=== PATIENT | female | born 1955 | race Asian ===

== ENCOUNTER 2020-12-24 14:41 | Emergency (ER) | payer MEDICARE, OTHER ==
[~2020-12-24] VITALS: Ht 152.4 cm; Wt 49.9 kg
[2020-12-24 16:02] VITALS: BP 129/88
[2020-12-24] MEDS ORDERED: TETANUS-DIPTH-ACEL PERTUSSIS 0.5ML SYR Tdap IM ONE (17:45)
== END 2020-12-24 18:34 | disposition home or self-care (01) ==
LOC: ER 14:49
DX: S51.852A Open bite of left forearm, initial encounter (principal); W54.0XXA Bitten by dog, initial encounter; Y93.89 Activity, other specified; Y92.89 Other specified places as the place of occurrence of the external cause; Y99.8 Other external cause status
CPT/HCPCS: 73080; 90471; 90715

== ENCOUNTER 2022-07-12 22:28 | Inpatient (IN) | payer MEDICARE, OTHER ==
[~2022-07-12] VITALS: Ht 157.5 cm; Wt 48.5 kg
[2022-07-12] MEDS ORDERED: SODIUM CHLORIDE 0.9% 1,000 ML IV ONE ×2 (22:45)
[2022-07-12 23:33] LABS: Basophils # (auto) 0 10 ^3/uL (0-0.2); Basophils % (auto) 0.2 % (0.0-2.0); Eosinophils # (auto) 0 10 ^3/uL (0-0.8); Hematocrit 32.3 % (36.0-46.0); Hemoglobin 10.8 g/dL (12.2-16.2); Lymphocytes # (auto) 0.4 10 ^3/uL (0.4-5.4); Lymphocytes % (auto) 5.2 % (10.0-50.0); Mean Corpuscular Hemoglobin 32.9 pg (28.0-32.0); Mean Corpuscular Hgb Conc. 33.6 g/dL (32.0-36.0); Mean Corpuscular Volume 98.1 fL (80.0-100.0); Monocytes # (auto) 0.2 10 ^3/uL (0-1.3); Monocytes % (auto) 2.5 % (0.0-12.0); Neutrophils # (auto) 7.6 10 ^3/uL (1.6-8.6); Neutrophils % (auto) 92.1 % (37.0-80.0); Red Blood Cells 3.29 10^6/uL (4.0-5.20); White Blood Cell 8.3 10^3/uL (4.4-10.8)
[2022-07-12 23:34] LABS: Red Cell Distribution Width 22.4 % (11.8-14.3)
[2022-07-12 23:52] LABS: Albumin 3.8 g/dL (3.4-5.0); Calcium 8.8 mg/dL (8.5-10.1); Potassium 3.9 mmol/L (3.5-5.1)
[2022-07-12 23:54] LABS: BUN/Creatinine Ratio 20.8
[2022-07-12 23:57] LABS: Bilirubin, Total 0.4 mg/dL (0.2-1.0); Total Protein 7.1 g/dL (6.4-8.2)
[2022-07-13] MEDS ORDERED: MORPHINE SULFATE 4 MG/ML SYR/VIAL IV ONE (00:30)
[2022-07-13] MEDS ORDERED: ONDANSETRON HCL 4 MG/2 ML VIAL IV ONE (00:30)
[2022-07-13] MEDS: SODIUM CHLORIDE 0.9% 1,000 ML IV SCH (03:00)
[2022-07-13] MEDS ORDERED: MORPHINE SULFATE INJ 2 MG/ml SYRG IV PRN ×2 (03:00)
[2022-07-13] MEDS ORDERED: NITROGLYCERIN 0.4 MG SL TAB SL PRN (03:00)
[2022-07-13] MEDS ORDERED: HYDROcodone-ACET 5/325MG TAB PO PRN (03:00)
[2022-07-13] MEDS ORDERED: DOCUSATE SOD 100 MG CAP PO PRN (03:00)
[2022-07-13] MEDS ORDERED: MAALOX PLUS or MAALOX 30 ML PO PRN (03:00)
[2022-07-13] MEDS ORDERED: ACETAMINOPHEN 325 MG TAB PO PRN (03:00)
[2022-07-13] MEDS ORDERED: ONDANSETRON HCL 4 MG/2 ML VIAL IV PRN (03:00)
[2022-07-13 05:50] LABS: Basophils # (auto) 0 10 ^3/uL (0-0.2); Basophils % (auto) 0.3 % (0.0-2.0); Eosinophils # (auto) 0 10 ^3/uL (0-0.8); Eosinophils % (auto) 0.4 % (0.0-7.0); Hematocrit 28.6 % (36.0-46.0); Hemoglobin 9.6 g/dL (12.2-16.2); Lymphocytes # (auto) 0.8 10 ^3/uL (0.4-5.4); Lymphocytes % (auto) 14.8 % (10.0-50.0); Mean Corpuscular Hemoglobin 33.3 pg (28.0-32.0); Mean Corpuscular Hgb Conc. 33.7 g/dL (32.0-36.0); Mean Corpuscular Volume 98.8 fL (80.0-100.0); Monocytes # (auto) 0.5 10 ^3/uL (0-1.3); Monocytes % (auto) 8.7 % (0.0-12.0); Neutrophils # (auto) 4.2 10 ^3/uL (1.6-8.6); Neutrophils % (auto) 75.8 % (37.0-80.0); Red Blood Cells 2.89 10^6/uL (4.0-5.20); White Blood Cell 5.6 10^3/uL (4.4-10.8)
[2022-07-13 06:03] LABS: Red Cell Distribution Width 22.5 % (11.8-14.3)
[2022-07-13 06:10] LABS: BUN/Creatinine Ratio 23.5; Calcium 8.1 mg/dL (8.5-10.1); Potassium 3.8 mmol/L (3.5-5.1)
[2022-07-13 08:07] LABS: Urine Bacteria NONE SEEN /hpf (None Seen); Urine Blood Negative /uL (Negative); Urine Mucus FEW (None Seen); Urine WBC 4 /hpf (0 - 5)
[2022-07-13] MEDS ORDERED: AZITHROMYCIN 500MG/ 250ML 250 ML IV ONE (13:15)
[2022-07-13] MEDS ORDERED: cefTRIAXone 1GM/50ML D5W 50 ML IV ONE (13:15)
[2022-07-13 15:31] LABS: INR 1.06 (0.9-1.15); Partial Thromboplastin Time 29.5 sec (24.6-33.4)
[2022-07-13 18:00] VITALS: BP 102/65
[2022-07-13] MEDS ORDERED: DEXA2TAB PO (20:54)
[2022-07-13] MEDS: ALBUTEROL SULF 2.5 MG/0.5ML(0.5%) NEB SOLN NEB SCH (23:35)
[2022-07-13] MEDS: IPRATROPIUM BROM 0.5 MG/2.5ML INH SOL NEB SCH (23:35)
[2022-07-14 05:00] VITALS: BP 92/58
[2022-07-14] MEDS: ALBUTEROL SULF 2.5 MG/0.5ML(0.5%) NEB SOLN NEB SCH ×2 (06:22→11:18)
[2022-07-14] MEDS: IPRATROPIUM BROM 0.5 MG/2.5ML INH SOL NEB SCH ×2 (06:22→11:18)
[2022-07-14] MEDS: SODIUM CHLORIDE 0.9% 1,000 ML IV SCH ×2 (06:59→12:20)
[2022-07-14] MEDS ORDERED: cefTRIAXone 1GM/50ML D5W 50 ML IV SCH (09:00)
[2022-07-14 09:22] VITALS: BP 100/60
[2022-07-14] MEDS ORDERED: ENOXAPARIN SOD 40 MG/0.4 ML SYRINGE SC SCH (10:00)
[2022-07-14] MEDS ORDERED: AZITHROMYCIN 500MG/ 250ML 250 ML IV SCH (10:00)
[2022-07-14 12:26] VITALS: BP 100/60
[2022-07-14 12:30] VITALS: BP 115/68
== END 2022-07-14 13:38 | disposition home or self-care (01) | DRG 597 ==
LOC: ER 22:28 → TELE 07-13 03:00 → WEST WING 07-13 21:10
PROVIDERS: ADMIT Hospitalist; ATTEND Internal Medicine
DX: C50.912 Malignant neoplasm of unspecified site of left female breast (principal); I21.A1 Myocardial infarction type 2; J96.00 Acute respiratory failure, unspecified whether with hypoxia or hypercapnia; C79.51 Secondary malignant neoplasm of bone; J98.11 Atelectasis; C79.31 Secondary malignant neoplasm of brain; J91.0 Malignant pleural effusion; Z20.822 Contact with and (suspected) exposure to COVID-19; G89.4 Chronic pain syndrome; D64.9 Anemia, unspecified; Z92.3 Personal history of irradiation; Z92.21 Personal history of antineoplastic chemotherapy
CPT/HCPCS: 36415; 71045; 74176; 76604; 80048; 80053; 81001; 84484; 85025; 85610; 85730; 87426; 94640; 96361; 96365; 96367; 96375; G0378; J0696; J2405

== ENCOUNTER 2023-06-08 20:31 | Inpatient (IN) | payer MEDICARE, OTHER ==
[~2023-06-08] VITALS: Ht 149.9 cm; Wt 55.8 kg
[~2023-06-08 20:31] MED LIST: DEXA2TAB PO
[2023-06-08 21:33] LABS: Red Blood Cells 3.64 10^6/uL (4.0-5.20); White Blood Cell 7.5 10^3/uL (4.4-10.8)
[2023-06-08 21:35] LABS: Hematocrit 37.5 % (36.0-46.0); Mean Corpuscular Volume 103.1 fL (80.0-100.0); Red Cell Distribution Width 15.9 % (11.8-14.3)
[2023-06-08 21:41] LABS: Basophils % (manual) 0 (0.0-2.0); Blast Cells 0; Eosinophils % (manual) 0 (0-7); Metamyelocytes % 0; Myelocytes % 0; Promyelocytes % 0; Reactive Lymphocytes 0
[2023-06-08 21:54] LABS: Alanine Aminotransferase 16 U/L (7-40); Albumin 3.8 g/dL (3.2-4.8); Alkaline Phosphatase 67 U/L (46-116); Anion Gap 8 (5-15); Aspartate Aminotransferase 28 U/L (13-40); BUN/Creatinine Ratio 29.5 (10.0-20.0); Blood Urea Nitrogen 13 mg/dL (9-23); Calcium 8.3 mg/dL (8.5-10.1); Carbon Dioxide 22 mmol/L (20-30); Chloride 106 mmol/L (98-107); Glucose 127 mg/dL (74-106); Potassium 4.3 mmol/L (3.5-5.1); Sodium 136 mmol/L (136-145)
[2023-06-08 21:55] LABS: Bilirubin, Total 0.6 mg/dL (0.2-1.0); Total Protein 5.7 g/dL (5.7-8.2)
[2023-06-08 22:04] LABS: INR 1.05 (0.9-1.15); Partial Thromboplastin Time 34.5 SEC (24.5-34.5)
[2023-06-08 22:08] LABS: Anisocytosis Slight; Band Neutrophils % (manual) 2; Lymphocytes % (manual) 9 (10.0-50.0); Macrocytosis Slight; Monocytes % (manual) 7 (0-12); Platelet Estimate Adequate
[2023-06-09] VITALS (7 sets, daily range): BP systolic 100–121; BP diastolic 58–66; PULSE 104–118; RESP 18–22; TEMP 98–98.3; O2SAT 95–98
[2023-06-09] MEDS ORDERED: ALBUTEROL MEDNEB 2.5 mg/3ml NEB NEB ONE
[2023-06-09] MEDS ORDERED: SODIUM CHLORIDE 0.9% 1,000 ML IVB ONE
[2023-06-09] MEDS ORDERED: PIPERACILLIN-TAZOB 3.375GM 100 ML IV SCH
[2023-06-09] MEDS ORDERED: VANCOMYCIN PER PHARMACY 0 MG IV SCH
[2023-06-09] MEDS ORDERED: VANCOMYCIN 1GM/250ML 250 ML IV SCH (00:30)
[2023-06-09] MEDS ORDERED: ALBUTEROL MEDNEB 2.5 mg/3ml NEB ONE (00:35)
[2023-06-09] MEDS ORDERED: IOHEXOL 350 MG/ML 100ML IJ ONE (00:48)
[2023-06-09 01:03] LABS: Base Excess -2.5 mmol/L (-2.0-2.0)
[2023-06-09] MEDS: PIPERACILLIN-TAZOB 3.375GM 100 ML IV SCH ×3 (07:56→21:13)
[2023-06-09] MEDS ORDERED: ACETAMINOPHEN 325 MG TAB PO PRN (08:30)
[2023-06-09] MEDS ORDERED: ONDANSETRON HCL 4 MG/2 ML VIAL IV PRN (08:30)
[2023-06-09] MEDS ORDERED: MORPHINE SULFATE INJ 2 MG/ml SYRG IV PRN (10:00)
[2023-06-09] MEDS ORDERED: NITROGLYCERIN 0.4 MG SL TAB SL PRN (10:00)
[2023-06-09] MEDS ORDERED: IPRATROPIUM BROM 0.5 MG/2.5ML INH SOL NEB PRN (11:30)
[2023-06-09] MEDS ORDERED: ALBUTEROL MEDNEB 2.5 mg/3ml NEB NEB PRN (11:30)
[2023-06-09] MEDS: SODIUM CHLOR 0.9% PF (SALINE LOCK) 10ML VIAL/SYR IV SCH ×2 (14:03→21:13)
[2023-06-09] MEDS ORDERED: VANCOMYCIN 500 MG in D5W 5% 100 ML IV SCH (17:00)
[2023-06-09] MEDS: VANCOMYCIN 500 MG in D5W 5% 100 ML IV SCH (19:42)
[2023-06-09 22:42] LABS: Urine Amorphous Crystal FEW /hpf (None Seen); Urine Bacteria FEW /hpf (None Seen); Urine Blood 1+ /uL (Negative); Urine Clarity CLOUDY (Clear); Urine Color Yellow (Yellow); Urine Mucus FEW (None Seen); Urine Protein, UAD 2+ (Negative); Urine Specific Gravity 1.047 (1.001-1.035); Urine Urobilinogen Normal (Negative); Urine WBC 34 /hpf (0 - 5)
[2023-06-10] VITALS (10 sets, daily range): BP systolic 102–123; BP diastolic 58–79; PULSE 103–116; RESP 18–20; TEMP 97.6–97.8; O2SAT 81–98
[2023-06-10] MEDS: HYDROcodone-ACET 5/325MG TAB PO PRN ×3 (00:25→23:17)
[2023-06-10] MEDS: PIPERACILLIN-TAZOB 3.375GM 100 ML IV SCH ×3 (05:08→22:02)
[2023-06-10] MEDS: SODIUM CHLOR 0.9% PF (SALINE LOCK) 10ML VIAL/SYR IV SCH ×3 (05:08→23:16)
[2023-06-10 06:59] LABS: Hematocrit 38.9 % (36.0-46.0)
[2023-06-10 07:03] LABS: Mean Corpuscular Hemoglobin 33.1 pg (28.0-32.0); Mean Corpuscular Hgb Conc. 30.9 g/dL (32.0-36.0); Mean Corpuscular Volume 107.3 fL (80.0-100.0); Red Blood Cells 3.62 10^6/uL (4.0-5.20); Red Cell Distribution Width 16.8 % (11.8-14.3); White Blood Cell 9.1 10^3/uL (4.4-10.8)
[2023-06-10 07:15] LABS: Alanine Aminotransferase 13 U/L (7-40); Albumin 3.6 g/dL (3.2-4.8); Alkaline Phosphatase 62 U/L (46-116); Anion Gap 10 (5-15); Aspartate Aminotransferase 26 U/L (13-40); BUN/Creatinine Ratio 18.4 (10.0-20.0); Bilirubin, Total 0.5 mg/dL (0.2-1.0); Blood Urea Nitrogen 7 mg/dL (9-23); Calcium 7.9 mg/dL (8.7-10.4); Carbon Dioxide 23 mmol/L (20-30); Chloride 103 mmol/L (98-107); Glucose 110 mg/dL (74-106); Potassium 4.1 mmol/L (3.5-5.1); Sodium 136 mmol/L (136-145); Total Protein 5.9 g/dL (5.7-8.2)
[2023-06-10 07:21] LABS: Basophils % (manual) 0 (0.0-2.0); Blast Cells 0; Eosinophils % (manual) 0 (0-7); Metamyelocytes % 0; Myelocytes % 0; Promyelocytes % 0; Reactive Lymphocytes 0
[2023-06-10] MEDS: VANCOMYCIN 500 MG in D5W 5% 100 ML IV SCH ×2 (10:01→20:30)
[2023-06-10 12:25] LABS: Band Neutrophils % (manual) 6; Lymphocytes % (manual) 12 (10.0-50.0); Macrocytosis Moderate; Monocytes % (manual) 10 (0-12); Platelet Estimate Adequate
[2023-06-10 15:15] LABS: Folate (Folic Acid) 12.71 ng/mL (>5.38)
[2023-06-10] MEDS: FUROSEMIDE 40 MG/4 ML VIAL IV SCH (20:11)
[2023-06-11] VITALS (9 sets, daily range): BP systolic 93–141; BP diastolic 63–90; PULSE 107–133; RESP 18–22; TEMP 97.6–98.8; O2SAT 92–96
[2023-06-11 05:14] LABS: COVID19 ANTIGEN SOFIA FIA NEGATIVE (NEGATIVE)
[2023-06-11 05:32] LABS: Basophils # (auto) 0 10 ^3/uL (0-0.2); Basophils % (auto) 0.1 % (0.0-2.0); Eosinophils # (auto) 0 10 ^3/uL (0-0.8); Hematocrit 36.1 % (36.0-46.0); Hemoglobin 11.5 g/dL (12.2-16.2); Lymphocytes # (auto) 0.2 10 ^3/uL (0.4-5.4); Lymphocytes % (auto) 1.6 % (10.0-50.0); Mean Corpuscular Hgb Conc. 31.8 g/dL (32.0-36.0); Mean Corpuscular Volume 100.7 fL (80.0-100.0); Monocytes # (auto) 1.1 10 ^3/uL (0-1.3); Monocytes % (auto) 8.6 % (0.0-12.0); Neutrophils # (auto) 11.1 10 ^3/uL (1.6-8.6); Neutrophils % (auto) 89.7 % (37.0-80.0); Red Blood Cells 3.59 10^6/uL (4.0-5.20); Red Cell Distribution Width 16.2 % (11.8-14.3); White Blood Cell 12.4 10^3/uL (4.4-10.8)
[2023-06-11 05:56] LABS: Alanine Aminotransferase 15 U/L (7-40); Albumin 3.8 g/dL (3.2-4.8); Alkaline Phosphatase 65 U/L (46-116); Anion Gap 9 (5-15); Aspartate Aminotransferase 26 U/L (13-40); BUN/Creatinine Ratio 17.8 (10.0-20.0); Blood Urea Nitrogen 8 mg/dL (9-23); Calcium 8.7 mg/dL (8.5-10.1); Carbon Dioxide 26 mmol/L (20-30); Chloride 101 mmol/L (98-107); Glucose 231 mg/dL (74-106); Sodium 136 mmol/L (136-145)
[2023-06-11 05:57] LABS: Bilirubin, Total 0.4 mg/dL (0.2-1.0); Total Protein 6.2 g/dL (5.7-8.2)
[2023-06-11] MEDS: PIPERACILLIN-TAZOB 3.375GM 100 ML IV SCH (05:58)
[2023-06-11 06:05] LABS: CRP High Sensitivity 16.98 mg/dL (<1.0)
[2023-06-11] MEDS: FUROSEMIDE 40 MG/4 ML VIAL IV SCH ×2 (06:06→18:00)
[2023-06-11] MEDS: SODIUM CHLOR 0.9% PF (SALINE LOCK) 10ML VIAL/SYR IV SCH ×3 (06:07→21:46)
[2023-06-11 06:21] LABS: Magnesium 1.9 mg/dL (1.6-2.6)
[2023-06-11] MEDS: VANCOMYCIN 500 MG in D5W 5% 100 ML IV SCH ×2 (08:31→18:07)
[2023-06-11] MEDS: HYDROcodone-ACET 5/325MG TAB PO PRN (08:39)
[2023-06-11 09:59] LABS: Lactic Acid w/Reflex 2.8 mmol/L (0.4-2.0)
[2023-06-11] MEDS: Glucerna Carbsteady SHAKE Vanilla 8oz PO SCH ×2 (12:15→18:08)
[2023-06-11] MEDS: HYDROcodone-ACET 10/325MG TAB PO PRN (13:08)
[2023-06-11] MEDS ORDERED: MEROPENEM 1GM IVPB 100 ML IV SCH (14:00)
[2023-06-11] MEDS ORDERED: MORPHINE SULFATE INJ 2 MG/ml SYRG IV PRN (15:30)
[2023-06-11] MEDS: MEROPENEM 1GM IVPB 100 ML IV SCH (21:45)
[2023-06-12] VITALS (9 sets, daily range): BP systolic 98–119; BP diastolic 60–71; PULSE 112–126; RESP 16–19; TEMP 97.2–98; O2SAT 94–97
[2023-06-12] MEDS: VANCOMYCIN 500 MG in D5W 5% 100 ML IV SCH ×2 (04:35→13:36)
[2023-06-12] MEDS: FUROSEMIDE 40 MG/4 ML VIAL IV SCH ×2 (06:17→17:48)
[2023-06-12] MEDS: SODIUM CHLOR 0.9% PF (SALINE LOCK) 10ML VIAL/SYR IV SCH ×3 (06:21→21:37)
[2023-06-12] MEDS: Glucerna Carbsteady SHAKE Vanilla 8oz PO SCH ×3 (10:03→17:48)
[2023-06-12] MEDS: MEROPENEM 1GM IVPB 100 ML IV SCH ×2 (10:03→21:29)
[2023-06-12 11:04] LABS: Basophils # (auto) 0.1 10 ^3/uL (0-0.2); Basophils % (auto) 0.5 % (0.0-2.0); Eosinophils # (auto) 0 10 ^3/uL (0-0.8); Hematocrit 34.6 % (36.0-46.0); Lymphocytes % (auto) 9.3 % (10.0-50.0); Mean Corpuscular Hemoglobin 31.6 pg (28.0-32.0); Mean Corpuscular Hgb Conc. 31.7 g/dL (32.0-36.0); Mean Corpuscular Volume 99.8 fL (80.0-100.0); Monocytes # (auto) 0.9 10 ^3/uL (0-1.3); Neutrophils # (auto) 9.1 10 ^3/uL (1.6-8.6); Neutrophils % (auto) 82.2 % (37.0-80.0); Red Blood Cells 3.47 10^6/uL (4.0-5.20); Red Cell Distribution Width 16.9 % (11.8-14.3); White Blood Cell 11.1 10^3/uL (4.4-10.8)
[2023-06-12 11:23] LABS: Alanine Aminotransferase 35 U/L (7-40); Albumin 3.5 g/dL (3.2-4.8); Alkaline Phosphatase 90 U/L (46-116); Anion Gap 6 (5-15); Aspartate Aminotransferase 101 U/L (13-40); Bilirubin, Total 0.3 mg/dL (0.2-1.0); Blood Urea Nitrogen 16 mg/dL (9-23); Calcium 8.7 mg/dL (8.7-10.4); Carbon Dioxide 35 mmol/L (20-30); Chloride 97 mmol/L (98-107); Glucose 154 mg/dL (74-106); Magnesium 1.5 mg/dL (1.6-2.6); Potassium 3.9 mmol/L (3.5-5.1); Sodium 138 mmol/L (136-145); Total Protein 6.2 g/dL (5.7-8.2)
[2023-06-12 11:36] LABS: Lactic Acid w/Reflex 2.1 mmol/L (0.4-2.0)
[2023-06-12] MEDS ORDERED: PANTOPRAZOLE 40 MG/10 ML VIAL INJ IV ONE (16:45)
[2023-06-12] MEDS: DOCUSATE SOD 100 MG CAP PO PRN (16:49)
[2023-06-12] MEDS: HYDROcodone-ACET 10/325MG TAB PO PRN (23:13)
[2023-06-13] MEDS: VANCOMYCIN 750mg/250ml 250 ML IV SCH ×2 (00:47→09:56)
[2023-06-13] MEDS: PANTOPRAZOLE 40 MG/10 ML VIAL INJ IV SCH ×2 (04:57→18:35)
[2023-06-13 05:00] VITALS: BP 114/60; PULSE 114; RESP 16; TEMP 98.4; O2SAT 96
[2023-06-13] MEDS: SODIUM CHLOR 0.9% PF (SALINE LOCK) 10ML VIAL/SYR IV SCH ×3 (05:02→21:34)
[2023-06-13] MEDS: FUROSEMIDE 40 MG/4 ML VIAL IV SCH ×3 (06:00→18:35)
[2023-06-13 08:00] VITALS: BP 100/60; PULSE 113; PULSE 120; PULSE 51; RESP 22; TEMP 98.7; O2SAT 96
[2023-06-13] MEDS: Glucerna Carbsteady SHAKE Vanilla 8oz PO SCH ×3 (09:55→18:36)
[2023-06-13] MEDS: DOCUSATE SOD 100 MG CAP PO PRN (11:23)
[2023-06-13] MEDS: MEROPENEM 1GM IVPB 100 ML IV SCH ×2 (11:24→21:33)
[2023-06-13 12:44] VITALS: BP 131/65; PULSE 116; RESP 20; TEMP 98.6; O2SAT 94
[2023-06-13 17:00] VITALS: BP 111/59; PULSE 113; RESP 20; TEMP 97.4; O2SAT 94
[2023-06-13 20:00] VITALS: PULSE 113; PULSE 117; RESP 20
[2023-06-13] MEDS: HYDROcodone-ACET 10/325MG TAB PO PRN (21:34)
[2023-06-13 22:00] VITALS: BP 110/65; PULSE 112; RESP 17; TEMP 97.6; O2SAT 94
[2023-06-14] VITALS (7 sets, daily range): BP systolic 95–122; BP diastolic 57–76; PULSE 61–118; RESP 12–17; TEMP 97.5–98.1; O2SAT 95–100
[2023-06-14] MEDS: FUROSEMIDE 40 MG/4 ML VIAL IV SCH ×2 (05:50→18:41)
[2023-06-14] MEDS: SODIUM CHLOR 0.9% PF (SALINE LOCK) 10ML VIAL/SYR IV SCH ×3 (05:50→22:21)
[2023-06-14] MEDS: PANTOPRAZOLE 40 MG/10 ML VIAL INJ IV SCH ×2 (05:50→18:39)
[2023-06-14] MEDS: VANCOMYCIN 750mg/250ml 250 ML IV SCH ×2 (08:00→18:41)
[2023-06-14] MEDS: HYDROcodone-ACET 10/325MG TAB PO PRN (10:30)
[2023-06-14] MEDS: MEROPENEM 1GM IVPB 100 ML IV SCH ×2 (10:32→22:21)
[2023-06-14] MEDS: Glucerna Carbsteady SHAKE Vanilla 8oz PO SCH ×3 (10:34→18:43)
[2023-06-15] VITALS (7 sets, daily range): BP systolic 96–108; BP diastolic 57–67; PULSE 98–111; RESP 17–20; TEMP 97.7–98.3; O2SAT 96–100
[2023-06-15] MEDS: VANCOMYCIN 750mg/250ml 250 ML IV SCH ×2 (03:45→18:21)
[2023-06-15] MEDS: HYDROcodone-ACET 10/325MG TAB PO PRN ×2 (05:48→22:02)
[2023-06-15] MEDS: PANTOPRAZOLE 40 MG/10 ML VIAL INJ IV SCH ×2 (06:10→18:20)
[2023-06-15] MEDS: SODIUM CHLOR 0.9% PF (SALINE LOCK) 10ML VIAL/SYR IV SCH ×3 (06:11→21:53)
[2023-06-15] MEDS: FUROSEMIDE 40 MG/4 ML VIAL IV SCH ×2 (06:11→18:20)
[2023-06-15 06:57] LABS: Alanine Aminotransferase 23 U/L (7-40); Albumin 3.5 g/dL (3.2-4.8); Alkaline Phosphatase 87 U/L (46-116); Aspartate Aminotransferase 35 U/L (13-40); BUN/Creatinine Ratio 44.4 (10.0-20.0); Blood Urea Nitrogen 16 mg/dL (9-23); Calcium 8.5 mg/dL (8.7-10.4); Chloride 94 mmol/L (98-107); Glucose 148 mg/dL (74-106); Magnesium 1.7 mg/dL (1.6-2.6); Potassium 3.6 mmol/L (3.5-5.1); Sodium 138 mmol/L (136-145)
[2023-06-15 06:58] LABS: Anion Gap 3.99999 (5-15); Bilirubin, Total 0.4 mg/dL (0.2-1.0); Total Protein 5.5 g/dL (5.7-8.2)
[2023-06-15 07:00] LABS: Carbon Dioxide > 40 mmol/L (20-30)
[2023-06-15 07:07] LABS: Basophils # (auto) 0 10 ^3/uL (0-0.2); Basophils % (auto) 0.1 % (0.0-2.0); Eosinophils # (auto) 0 10 ^3/uL (0-0.8); Eosinophils % (auto) 0.4 % (0.0-7.0); Hematocrit 34.6 % (36.0-46.0); Hemoglobin 11.1 g/dL (12.2-16.2); Lymphocytes # (auto) 0.5 10 ^3/uL (0.4-5.4); Lymphocytes % (auto) 4.7 % (10.0-50.0); Mean Corpuscular Hemoglobin 31.9 pg (28.0-32.0); Mean Corpuscular Hgb Conc. 31.9 g/dL (32.0-36.0); Mean Corpuscular Volume 99.9 fL (80.0-100.0); Monocytes # (auto) 0.7 10 ^3/uL (0-1.3); Monocytes % (auto) 6.5 % (0.0-12.0); Neutrophils # (auto) 8.9 10 ^3/uL (1.6-8.6); Neutrophils % (auto) 88.3 % (37.0-80.0); Red Blood Cells 3.47 10^6/uL (4.0-5.20); Red Cell Distribution Width 16.8 % (11.8-14.3); White Blood Cell 10.1 10^3/uL (4.4-10.8)
[2023-06-15] MEDS: Glucerna Carbsteady SHAKE Vanilla 8oz PO SCH ×3 (08:00→18:00)
[2023-06-15] MEDS: MEROPENEM 1GM IVPB 100 ML IV SCH ×2 (11:24→21:54)
[2023-06-16] VITALS (8 sets, daily range): BP systolic 90–102; BP diastolic 58–99; PULSE 83–106; RESP 14–18; TEMP 97.6–98.1; O2SAT 91–98
[2023-06-16] MEDS: VANCOMYCIN 750mg/250ml 250 ML IV SCH ×2 (01:03→10:20)
[2023-06-16] MEDS: PANTOPRAZOLE 40 MG/10 ML VIAL INJ IV SCH ×2 (05:33→17:41)
[2023-06-16] MEDS: SODIUM CHLOR 0.9% PF (SALINE LOCK) 10ML VIAL/SYR IV SCH ×3 (05:34→22:11)
[2023-06-16] MEDS: FUROSEMIDE 40 MG/4 ML VIAL IV SCH ×2 (05:34→17:46)
[2023-06-16 06:37] LABS: Rapid Influenza A Negative (Negative); Rapid Influenza B Negative (Negative)
[2023-06-16] MEDS: Glucerna Carbsteady SHAKE Vanilla 8oz PO SCH ×3 (08:00→18:16)
[2023-06-16] MEDS: MEROPENEM 1GM IVPB 100 ML IV SCH (11:29)
[2023-06-16] MEDS ORDERED: cefTRIAXone 1GM/50ML D5W 50 ML IV ONE (15:15)
[2023-06-16] MEDS: HYDROcodone-ACET 10/325MG TAB PO PRN (22:08)
[2023-06-17] MEDS: PANTOPRAZOLE 40 MG/10 ML VIAL INJ IV SCH (04:43)
[2023-06-17 05:00] VITALS: BP 97/59; PULSE 105; RESP 16; TEMP 98.2; O2SAT 97
[2023-06-17] MEDS: SODIUM CHLOR 0.9% PF (SALINE LOCK) 10ML VIAL/SYR IV SCH ×3 (05:29→22:28)
[2023-06-17] MEDS: FUROSEMIDE 40 MG/4 ML VIAL IV SCH ×2 (05:29→17:14)
[2023-06-17 07:15] LABS: Chloride 94 mmol/L (98-107); Potassium 4.4 mmol/L (3.5-5.1); Sodium 140 mmol/L (136-145)
[2023-06-17 07:16] LABS: Calcium 9.1 mg/dL (8.5-10.1)
[2023-06-17 07:20] LABS: BUN/Creatinine Ratio 66.7 (10.0-20.0); Blood Urea Nitrogen 22 mg/dL (9-23); Glucose 99 mg/dL (74-106)
[2023-06-17 07:30] LABS: Carbon Dioxide > 40 mmol/L (20-30)
[2023-06-17 08:00] VITALS: PULSE 103; PULSE 105; RESP 18; O2SAT 97
[2023-06-17] MEDS: Glucerna Carbsteady SHAKE Vanilla 8oz PO SCH ×3 (08:00→18:00)
[2023-06-17 09:00] VITALS: BP 99/58; PULSE 105; RESP 18; TEMP 97.4; O2SAT 97
[2023-06-17] MEDS: cefTRIAXone 1GM/50ML D5W 50 ML IV SCH (09:23)
[2023-06-17 11:53] LABS: Base Excess 19.2 mmol/L (-2.0-2.0)
[2023-06-17 13:00] VITALS: BP 115/72; PULSE 111; RESP 19; TEMP 97.8; O2SAT 95
[2023-06-17 16:36] VITALS: BP 96/62; PULSE 106; RESP 17; TEMP 98; O2SAT 96
[2023-06-17] MEDS: DOCUSATE SOD 100 MG CAP PO PRN (17:13)
[2023-06-17 20:00] VITALS: PULSE 108; PULSE 110; RESP 18; O2SAT 97
[2023-06-18 05:00] VITALS: BP 106/63; PULSE 105; RESP 16; TEMP 97.6; O2SAT 99
[2023-06-18] MEDS: FUROSEMIDE 40 MG/4 ML VIAL IV SCH ×2 (05:16→18:00)
[2023-06-18] MEDS: SODIUM CHLOR 0.9% PF (SALINE LOCK) 10ML VIAL/SYR IV SCH ×2 (05:16→12:38)
[2023-06-18 08:00] VITALS: PULSE 113; RESP 16
[2023-06-18] MEDS: Glucerna Carbsteady SHAKE Vanilla 8oz PO SCH ×3 (08:00→18:00)
[2023-06-18 09:00] VITALS: BP 110/74; PULSE 118; RESP 20; TEMP 98.4; O2SAT 96
[2023-06-18] MEDS: cefTRIAXone 1GM/50ML D5W 50 ML IV SCH (12:38)
[2023-06-18 13:00] VITALS: BP 117/63; PULSE 108; RESP 18; TEMP 98; O2SAT 96
[2023-06-18 16:29] VITALS: BP 98/61; PULSE 111; RESP 16; TEMP 97.6; O2SAT 98
== END 2023-06-18 19:00 | disposition home or self-care (01) | DRG 189 ==
LOC: ER 20:31 → TELE 06-09 09:57 → TELE-WESTW 06-09 15:48
PROVIDERS: ADMIT Nurse Practitioner Family; ATTEND Internal Medicine Geriatric Medicine
PROC: 05HB33Z Insertion of Infusion Device into Right Basilic Vein, Percutaneous Approach (ICD-10-PCS; principal; 2023-06-14)
PROC: B54MZZA Ultrasonography of Right Upper Extremity Veins, Guidance (ICD-10-PCS; 2023-06-14)
DX: J96.21 Acute and chronic respiratory failure with hypoxia (principal); C78.2 Secondary malignant neoplasm of pleura; C78.7 Secondary malignant neoplasm of liver and intrahepatic bile duct; R64 Cachexia; N39.0 Urinary tract infection, site not specified; J94.8 Other specified pleural conditions; I50.32 Chronic diastolic (congestive) heart failure; R62.7 Adult failure to thrive; Z20.822 Contact with and (suspected) exposure to COVID-19; C50.912 Malignant neoplasm of unspecified site of left female breast; Z92.3 Personal history of irradiation; Z68.23 Body mass index [BMI] 23.0-23.9, adult; Z85.3 Personal history of malignant neoplasm of breast
CPT/HCPCS: 36415; 36600; 71045; 76604; 76700; 80048; 80053; 80202; 81001; 82306; 82565; 82607; 82746; 82805; 83036; 83605; 83735; 83880; 84443; 84484; 85007; 85025; 85027; 85610; 85730; 86141; 86850; 86900; 86901; 87040; 87086; 87426; 87804; 92507; 92610; 93005; 93306; 93970; 93971; C9113; G0378; J0696; J2185; J2543; J7060

== ENCOUNTER 2023-07-06 15:55 | Inpatient (IN) | payer MEDICARE, OTHER ==
[~2023-07-06] VITALS: Ht 162.6 cm; Wt 48.0 kg
[2023-07-06 16:20] VITALS: PULSE 128; RESP 23; O2SAT 85
[2023-07-06] MEDS ORDERED: ALBUTEROL SULF 2.5 MG/0.5ML(0.5%) NEB SOLN NEB ONE (16:30)
[2023-07-06] MEDS ORDERED: DexAMETHasone SOD PHOS 10MG/1ML VIAL INJ IV ONE (16:30)
[2023-07-06] MEDS ORDERED: IPRATROPIUM BROM 0.5 MG/2.5ML INH SOL NEB ONE (16:30)
[2023-07-06] MEDS ORDERED: PIPERACILLIN-TAZOB 3.375GM 100 ML IV ONE (17:00)
[2023-07-06] MEDS ORDERED: FUROSEMIDE 100 MG/10ML VIAL IV ONE (17:15)
[2023-07-06 17:24] VITALS: BP 172/88; PULSE 124; O2SAT 90
[2023-07-06 18:38] LABS: Base Excess -0.6 mmol/L (-2.0-2.0)
[2023-07-06 18:53] LABS: Red Blood Cells 4.11 10^6/uL (4.0-5.20)
[2023-07-06 18:56] LABS: Hematocrit 46.4 % (36.0-46.0); Hemoglobin 13.2 g/dL (12.2-16.2); Mean Corpuscular Hemoglobin 32.1 pg (28.0-32.0); Mean Corpuscular Hgb Conc. 28.4 g/dL (32.0-36.0); White Blood Cell 10.2 10^3/uL (4.4-10.8)
[2023-07-06 19:17] LABS: Alanine Aminotransferase 49 U/L (7-40); Alkaline Phosphatase 83 U/L (46-116); Anion Gap 9 (5-15); Aspartate Aminotransferase 74 U/L (13-40); BUN/Creatinine Ratio 30.6 (10.0-20.0); Blood Urea Nitrogen 22 mg/dL (9-23); Calcium 7.9 mg/dL (8.7-10.4); Carbon Dioxide 26 mmol/L (20-30); Chloride 114 mmol/L (98-107); Glucose 99 mg/dL (74-106); Potassium 5.3 mmol/L (3.5-5.1); Sodium 149 mmol/L (136-145)
[2023-07-06 19:18] LABS: Bilirubin, Total 0.4 mg/dL (0.2-1.0); Red Cell Distribution Width 21.5 % (11.8-14.3); Total Protein 5.2 g/dL (5.7-8.2)
[2023-07-06 19:20] LABS: Basophils % (manual) 0 (0.0-2.0); Blast Cells 0; Eosinophils % (manual) 0 (0-7); Metamyelocytes % 0; Myelocytes % 0; Promyelocytes % 0; Reactive Lymphocytes 0
[2023-07-06 19:27] LABS: Lactic Acid w/Reflex 3.8 mmol/L (0.4-2.0)
[2023-07-06 19:33] LABS: Band Neutrophils % (manual) 5
[2023-07-06 19:34] LABS: Lymphocytes % (manual) 6 (10.0-50.0); Monocytes % (manual) 2 (0-12)
[2023-07-06 19:35] LABS: Anisocytosis Slight; Macrocytosis Moderate; Platelet Estimate Markedly Decreased
[2023-07-06] MEDS ORDERED: NOREPINEPHRINE 8 MG/250ML KIT 250 ML IV ONE (19:40)
[2023-07-06] MEDS: NOREPINEPHRINE 8 MG/250ML KIT 250 ML IV SCH (19:45)
[2023-07-06] MEDS ORDERED: SODIUM CHLORIDE 0.9% 500 ML IV ONE ×2 (19:45)
[2023-07-06 19:49] VITALS: BP 80/42; PULSE 116; O2SAT 95
[2023-07-06] MEDS ORDERED: SODIUM CHLORIDE 0.9% 1,000 ML IV ONE (20:00)
[2023-07-06] MEDS ORDERED: SOD CHL 0.45% 500 ML IV ONE (20:15)
[2023-07-06 20:18] LABS: COVID19 ANTIGEN SOFIA FIA NEGATIVE (NEGATIVE)
[2023-07-06] MEDS ORDERED: DEXTROSE (50%) 50ML SYRG IV PRN (21:00)
[2023-07-06] MEDS ORDERED: IPRATROPIUM BROM 0.5 MG/2.5ML INH SOL NEB PRN (21:00)
[2023-07-06] MEDS ORDERED: NITROGLYCERIN 0.4 MG SL TAB SL PRN (21:00)
[2023-07-06] MEDS ORDERED: ONDANSETRON HCL 4 MG/2 ML VIAL IV PRN (21:00)
[2023-07-06] MEDS ORDERED: MORPHINE SULFATE INJ 2 MG/ml SYRG IV PRN (21:00)
[2023-07-06] MEDS ORDERED: ALBUTEROL SULF 2.5 MG/0.5ML(0.5%) NEB SOLN NEB PRN (21:00)
[2023-07-06] MEDS: ACCU-CHEK COMFORT CURVE STRIP VI SCH (21:35)
[2023-07-06 22:12] VITALS: BP 93/54; PULSE 105; O2SAT 95
[2023-07-06 22:33] LABS: Alanine Aminotransferase 57 U/L (7-40); Alkaline Phosphatase 76 U/L (46-116); Anion Gap 10 (5-15); Aspartate Aminotransferase 85 U/L (13-40); BUN/Creatinine Ratio 51.4 (10.0-20.0); Calcium 7.4 mg/dL (8.7-10.4); Carbon Dioxide 28 mmol/L (20-30); Chloride 113 mmol/L (98-107); Glucose 121 mg/dL (74-106); Potassium 4.4 mmol/L (3.5-5.1); Sodium 151 mmol/L (136-145)
[2023-07-06 22:34] LABS: Bilirubin, Total 0.5 mg/dL (0.2-1.0); Total Protein 4.9 g/dL (5.7-8.2)
[2023-07-06 22:41] LABS: Blood Urea Nitrogen 37 mg/dL (9-23)
[2023-07-06 22:49] LABS: Base Excess -1.8 mmol/L (-2.0-2.0)
[2023-07-06 22:51] LABS: Base Excess -3.8 mmol/L (-2.0-2.0)
[2023-07-06] MEDS ORDERED: ALBUMIN 25% 100 ML IV ONE (23:15)
[2023-07-07] VITALS (18 sets, daily range): BP systolic 85–155; BP diastolic 23–79; PULSE 103–117; RESP 21–29; TEMP 97.5–98.2; O2SAT 92–99
[2023-07-07] MEDS: ACCU-CHEK COMFORT CURVE STRIP VI SCH ×6 (01:53→22:15)
[2023-07-07 06:46] LABS: Hemoglobin 10.8 g/dL (12.2-16.2)
[2023-07-07 06:49] LABS: Hematocrit 36.8 % (36.0-46.0); Mean Corpuscular Hemoglobin 31.4 pg (28.0-32.0); Mean Corpuscular Hgb Conc. 29.4 g/dL (32.0-36.0); Mean Corpuscular Volume 107.1 fL (80.0-100.0); Red Blood Cells 3.44 10^6/uL (4.0-5.20)
[2023-07-07 06:55] LABS: Red Cell Distribution Width 20.6 % (11.8-14.3)
[2023-07-07 06:56] LABS: Band Neutrophils % (manual) 0; Basophils % (manual) 0 (0.0-2.0); Blast Cells 0; Eosinophils % (manual) 0 (0-7); Metamyelocytes % 0; Myelocytes % 0; Promyelocytes % 0; Reactive Lymphocytes 0
[2023-07-07 07:00] LABS: Urine Bacteria NONE SEEN /hpf (None Seen); Urine Blood 2+ /uL (Negative); Urine Clarity HAZY (Clear); Urine Color Yellow (Yellow); Urine Hyaline Cast MOD /lpf (0 - 2); Urine Mucus FEW (None Seen); Urine Protein, UAD TRACE (Negative); Urine Specific Gravity 1.011 (1.001-1.035); Urine Urobilinogen Normal (Negative); Urine WBC 18 /hpf (0 - 5); Urine WBC Clumps PRESENT /hpf (None Seen); Urine pH 5.5 (5.0-8.0)
[2023-07-07 07:09] LABS: Alanine Aminotransferase 74 U/L (7-40); Albumin 3.8 g/dL (3.2-4.8); Alkaline Phosphatase 66 U/L (46-116); Anion Gap 16 (5-15); Aspartate Aminotransferase 193 U/L (13-40); BUN/Creatinine Ratio 37.9 (10.0-20.0); Bilirubin, Total 0.5 mg/dL (0.2-1.0); Blood Urea Nitrogen 36 mg/dL (9-23); Carbon Dioxide 25 mmol/L (20-30); Chloride 110 mmol/L (98-107); Glucose 144 mg/dL (74-106); Potassium 4.6 mmol/L (3.5-5.1); Sodium 151 mmol/L (136-145); Total Protein 5.6 g/dL (5.7-8.2)
[2023-07-07 08:10] LABS: INR 1.03 (0.9-1.15); Prothrombin Time 10.8 sec (9.3-11.8)
[2023-07-07] MEDS ORDERED: cefTRIAXone 1GM/50ML D5W 50 ML IV SCH (09:00)
[2023-07-07 09:50] LABS: Lymphocytes % (manual) 1 (10.0-50.0); Monocytes % (manual) 2 (0-12)
[2023-07-07 09:51] LABS: Platelet Estimate Adequate
[2023-07-07] MEDS ORDERED: AZITHROMYCIN 500MG/ 250ML 250 ML IV SCH (10:00)
[2023-07-07] MEDS ORDERED: SODIUM CHLORIDE 0.9% 1,000 ML IV SCH (11:45)
[2023-07-07 13:22] LABS: Base Excess -3.8 mmol/L (-2.0-2.0)
[2023-07-07 14:41] LABS: Base Excess -3.6 mmol/L (-2.0-2.0)
[2023-07-07] MEDS: NOREPINEPHRINE 8 MG/250ML KIT 250 ML IV SCH (15:30)
[2023-07-07] MEDS ORDERED: CEFEPIME 2GM/50ML NS 50 ML IV ONE (17:00)
[2023-07-07] MEDS ORDERED: HYDROCORTISONE SOD SUCC 100 MG/2ML INJ VIAL IV ONE (17:00)
[2023-07-07] MEDS ORDERED: PANTOPRAZOLE 40 MG/10 ML VIAL INJ IV ONE (17:00)
[2023-07-07] MEDS: SODIUM BICARBONATE 50ML VIAL 75 ML in D5W 5% 1,000 ML IV SCH (18:15)
[2023-07-07 19:55] LABS: Body Fluid pH 7
[2023-07-07] MEDS: VASOPRESSIN 20 UNITS in SODIUM CHL 0.9% 99 ML IV SCH (21:04)
[2023-07-07] MEDS ORDERED: ALBUMIN 5% 250 ML IV ONE ×2 (21:45)
[2023-07-07 22:01] LABS: Body Fluid Polymorphonuclear 82 % (0-25); Body Fluid Red Blood Cells 738 CUMM (0-2000); Body Fluid White Blood Cells 368 CUMM (0-200)
[2023-07-07] MEDS: HYDROCORTISONE SOD SUCC 100 MG/2ML INJ VIAL IV SCH (22:26)
[2023-07-08] VITALS (39 sets, daily range): BP systolic 96–150; BP diastolic 27–82; PULSE 97–111; RESP 16–21; TEMP 98.8–99.7; O2SAT 96–100
[2023-07-08] MEDS: CEFEPIME 2GM/50ML NS 50 ML IV SCH ×2 (00:01→10:33)
[2023-07-08] MEDS: ACCU-CHEK COMFORT CURVE STRIP VI SCH ×7 (02:00→23:25)
[2023-07-08] MEDS: SODIUM BICARBONATE 50ML VIAL 75 ML in D5W 5% 1,000 ML IV SCH ×3 (03:45→20:45)
[2023-07-08 06:27] LABS: Hematocrit 39.6 % (36.0-46.0); Hemoglobin 11.7 g/dL (12.2-16.2); Mean Corpuscular Hemoglobin 31.9 pg (28.0-32.0); Mean Corpuscular Hgb Conc. 29.5 g/dL (32.0-36.0); Mean Corpuscular Volume 108.2 fL (80.0-100.0); Red Blood Cells 3.66 10^6/uL (4.0-5.20); Red Cell Distribution Width 19.8 % (11.8-14.3); White Blood Cell 12.3 10^3/uL (4.4-10.8)
[2023-07-08] MEDS ORDERED: SUCCINYLCHOLINE CHLORIDE 20 MG/ML 10ML VIAL IV ONE (06:30)
[2023-07-08] MEDS ORDERED: ETOMIDATE (2MG/ML) 20ML VIAL IV ONE (06:30)
[2023-07-08 06:32] LABS: Base Excess -3.8 mmol/L (-2.0-2.0)
[2023-07-08 06:32] LABS: Alanine Aminotransferase 122 U/L (7-40); Albumin 3.5 g/dL (3.2-4.8); Alkaline Phosphatase 64 U/L (46-116); Anion Gap 10 (5-15); Aspartate Aminotransferase 235 U/L (13-40); BUN/Creatinine Ratio 30.7 (10.0-20.0); Bilirubin, Total 0.4 mg/dL (0.2-1.0); Calcium 6.7 mg/dL (8.7-10.4); Carbon Dioxide 27 mmol/L (20-30); Chloride 107 mmol/L (98-107); Glucose 336 mg/dL (74-106); Sodium 144 mmol/L (136-145)
[2023-07-08 06:33] LABS: Total Protein 5.2 g/dL (5.7-8.2)
[2023-07-08 06:34] LABS: Blood Urea Nitrogen 50 mg/dL (9-23)
[2023-07-08 06:38] LABS: Potassium 5.6 mmol/L (3.5-5.1)
[2023-07-08] MEDS ORDERED: DEXTROSE (50%) 50ML SYRG IV ONE (06:45)
[2023-07-08] MEDS ORDERED: SODIUM BICARBONATE 8.4% INJ 50ML SYRINGE IV ONE (06:45)
[2023-07-08] MEDS: PHENYLEPHRINE IV 250 ML IV SCH ×2 (06:45→15:47)
[2023-07-08] MEDS ORDERED: CALCIUM GLUC 1,000mg/50ml-NS 50 ML IV ONE (06:45)
[2023-07-08] MEDS ORDERED: SODIUM ZIRCONIUM CYCL 10 GM PAK PO ONE (06:45)
[2023-07-08] MEDS ORDERED: InsuLIN REG 1unit/0.01ml Soln (100units/ml) IV ONE ×2 (06:45→11:30)
[2023-07-08 06:50] LABS: Band Neutrophils % (manual) 0; Basophils % (manual) 0 (0.0-2.0); Blast Cells 0; Eosinophils % (manual) 0 (0-7); Metamyelocytes % 0; Myelocytes % 0; Promyelocytes % 0; Reactive Lymphocytes 0
[2023-07-08] MEDS: VASOPRESSIN 20 UNITS in SODIUM CHL 0.9% 99 ML IV SCH ×2 (07:07→18:26)
[2023-07-08] MEDS: MIDAZOLAM DRIP 50 mg/50mL 50 ML IV SCH (07:17)
[2023-07-08 08:28] LABS: Base Excess -3.8 mmol/L (-2.0-2.0)
[2023-07-08 09:15] LABS: Lymphocytes % (manual) 5 (10.0-50.0); Monocytes % (manual) 3 (0-12); Platelet Estimate Adequate
[2023-07-08] MEDS: NOREPINEPHRINE 8 MG/250ML KIT 250 ML IV SCH ×3 (10:00→18:26)
[2023-07-08] MEDS: PANTOPRAZOLE 40 MG/10 ML VIAL INJ IV SCH (10:33)
[2023-07-08] MEDS: HYDROCORTISONE SOD SUCC 100 MG/2ML INJ VIAL IV SCH ×2 (10:33→22:00)
[2023-07-08] MEDS ORDERED: DEXTROSE (50%) 50ML SYRG IV PRN (11:30)
[2023-07-08] MEDS: InsuLIN REG 1unit/0.01ml Soln (100units/ml) SC SCH ×4 (12:00→23:27)
[2023-07-08] MEDS ORDERED: CEFEPIME 1GM/ 50ML 50 ML IV SCH (17:45)
[2023-07-08] MEDS: PHENYLEPHRINE INJ 80 MG in SODIUM CHL 0.9% 242 ML IV SCH (19:45)
[2023-07-08 21:32] LABS: Alanine Aminotransferase 152 U/L (7-40); Albumin 3.2 g/dL (3.2-4.8); Alkaline Phosphatase 70 U/L (46-116); Anion Gap 9 (5-15); Aspartate Aminotransferase 213 U/L (13-40); BUN/Creatinine Ratio 38.5 (10.0-20.0); Bilirubin, Total 0.4 mg/dL (0.2-1.0); Calcium 6.2 mg/dL (8.7-10.4); Carbon Dioxide 27 mmol/L (20-30); Chloride 103 mmol/L (98-107); Glucose 314 mg/dL (74-106); Magnesium 2.1 mg/dL (1.6-2.6); Potassium 5.2 mmol/L (3.5-5.1); Sodium 139 mmol/L (136-145); Total Protein 4.8 g/dL (5.7-8.2)
[2023-07-08 22:23] LABS: Blood Urea Nitrogen 60 mg/dL (9-23)
[2023-07-08] MEDS: NOREPINEPHRINE BITARTRATE 32 MG in SODIUM CHL 0.9% 218 ML IV SCH (22:51)
[2023-07-09] VITALS (115 sets, daily range): BP systolic 83–154; BP diastolic 20–99; PULSE 99–110; RESP 18–23; TEMP 97.7–99.3; O2SAT 94–99
[2023-07-09] MEDS: MIDAZOLAM DRIP 50 mg/50mL 50 ML IV SCH ×2 (02:04→19:47)
[2023-07-09] MEDS: InsuLIN REG 1unit/0.01ml Soln (100units/ml) SC SCH ×6 (03:47→23:47)
[2023-07-09] MEDS: ACCU-CHEK COMFORT CURVE STRIP VI SCH ×6 (03:47→23:47)
[2023-07-09 04:13] LABS: Hemoglobin 11.3 g/dL (12.2-16.2); White Blood Cell 16.4 10^3/uL (4.4-10.8)
[2023-07-09 04:16] LABS: Hematocrit 36.7 % (36.0-46.0); Mean Corpuscular Hemoglobin 31.4 pg (28.0-32.0); Mean Corpuscular Hgb Conc. 30.8 g/dL (32.0-36.0); Mean Corpuscular Volume 102.1 fL (80.0-100.0); Red Blood Cells 3.59 10^6/uL (4.0-5.20); Red Cell Distribution Width 18.8 % (11.8-14.3)
[2023-07-09] MEDS: VASOPRESSIN 20 UNITS in SODIUM CHL 0.9% 99 ML IV SCH ×2 (04:24→14:14)
[2023-07-09 04:33] LABS: Alanine Aminotransferase 157 U/L (7-40); Albumin 3.1 g/dL (3.2-4.8); Alkaline Phosphatase 73 U/L (46-116); Anion Gap 8 (5-15); Aspartate Aminotransferase 194 U/L (13-40); Carbon Dioxide 27 mmol/L (20-30); Chloride 102 mmol/L (98-107); Glucose 197 mg/dL (74-106); Potassium 4.9 mmol/L (3.5-5.1); Sodium 137 mmol/L (136-145)
[2023-07-09 04:34] LABS: Basophils % (manual) 0 (0.0-2.0); Bilirubin, Total 0.3 mg/dL (0.2-1.0); Blast Cells 0; Eosinophils % (manual) 0 (0-7); Metamyelocytes % 0; Myelocytes % 0; Promyelocytes % 0; Reactive Lymphocytes 0; Total Protein 4.7 g/dL (5.7-8.2)
[2023-07-09 04:43] LABS: Blood Urea Nitrogen 50 mg/dL (9-23)
[2023-07-09 05:02] LABS: Band Neutrophils % (manual) 19; Lymphocytes % (manual) 3 (10.0-50.0); Monocytes % (manual) 3 (0-12)
[2023-07-09 05:03] LABS: Platelet Estimate Decreased
[2023-07-09] MEDS: SODIUM BICARBONATE 50ML VIAL 75 ML in D5W 5% 1,000 ML IV SCH ×3 (06:05→16:37)
[2023-07-09 07:49] LABS: Base Excess -2.5 mmol/L (-2.0-2.0)
[2023-07-09] MEDS ORDERED: CALCIUM GLUC 1,000mg/50ml-NS 50 ML IV ONE (09:15)
[2023-07-09] MEDS ORDERED: CEFEPIME 1GM/ 50ML 50 ML IV SCH ×2 (10:00→16:15)
[2023-07-09] MEDS: PANTOPRAZOLE 40 MG/10 ML VIAL INJ IV SCH (10:30)
[2023-07-09] MEDS: HYDROCORTISONE SOD SUCC 100 MG/2ML INJ VIAL IV SCH ×2 (10:30→21:19)
[2023-07-09 11:06] LABS: Protein, Body Fluid 2.3 g/dL (.)
[2023-07-09 11:35] LABS: Urine Bacteria FEW /hpf (None Seen); Urine Blood 3+ /uL (Negative); Urine Budding Yeast MODERATE /hpf (None Seen); Urine Clarity HAZY (Clear); Urine Color Yellow (Yellow); Urine Protein, UAD 1+ (Negative); Urine Specific Gravity 1.016 (1.001-1.035); Urine Urobilinogen Normal (Negative); Urine WBC 13 /hpf (0 - 5); Urine pH 5.5 (5.0-8.0)
[2023-07-09 11:42] LABS: Sodium Urine < 10 mmol/L (40-220)
[2023-07-09 11:50] LABS: Creatinine, Urine 73.25 mg/dL (30.0-125.0); Urine Protein/Creatinine Ratio 2.03
[2023-07-09 14:13] LABS: Base Excess 0.8 mmol/L (-2.0-2.0)
[2023-07-09] MEDS ORDERED: CEFEPIME 1GM/ 50ML 50 ML IV ONE (16:15)
[2023-07-09] MEDS: PHENYLEPHRINE INJ 80 MG in SODIUM CHL 0.9% 242 ML IV SCH (19:45)
[2023-07-09] MEDS: NOREPINEPHRINE BITARTRATE 32 MG in SODIUM CHL 0.9% 218 ML IV SCH (19:47)
[2023-07-10] VITALS (69 sets, daily range): BP systolic 0–174; BP diastolic 32–93; PULSE 0–106; RESP 0–24; TEMP 97.7–99.1; O2SAT 0–97
[2023-07-10] MEDS: VASOPRESSIN 20 UNITS in SODIUM CHL 0.9% 99 ML IV SCH ×2 (00:02→13:21)
[2023-07-10] MEDS: ACCU-CHEK COMFORT CURVE STRIP VI SCH ×3 (03:31→12:38)
[2023-07-10] MEDS: InsuLIN REG 1unit/0.01ml Soln (100units/ml) SC SCH ×3 (03:33→12:41)
[2023-07-10 04:30] LABS: Hematocrit 35.2 % (36.0-46.0); Hemoglobin 11.3 g/dL (12.2-16.2); Mean Corpuscular Hemoglobin 31.7 pg (28.0-32.0); Mean Corpuscular Hgb Conc. 32.1 g/dL (32.0-36.0); Mean Corpuscular Volume 98.8 fL (80.0-100.0); Red Blood Cells 3.56 10^6/uL (4.0-5.20); Red Cell Distribution Width 19.5 % (11.8-14.3); White Blood Cell 19.8 10^3/uL (4.4-10.8)
[2023-07-10 04:38] LABS: Chloride 97 mmol/L (98-107); Potassium 4.8 mmol/L (3.5-5.1); Sodium 133 mmol/L (136-145)
[2023-07-10 04:40] LABS: Anion Gap 7 (5-15); Carbon Dioxide 29 mmol/L (20-30)
[2023-07-10 04:45] LABS: BUN/Creatinine Ratio 41.3 (10.0-20.0); Basophils % (manual) 0 (0.0-2.0); Blast Cells 0; Blood Urea Nitrogen 57 mg/dL (9-23); Eosinophils % (manual) 0 (0-7); Glucose 161 mg/dL (74-106); Lymphocytes % (manual) 0 (10.0-50.0); Metamyelocytes % 0; Myelocytes % 0; Promyelocytes % 0; Reactive Lymphocytes 0
[2023-07-10 05:03] LABS: Calcium 5.8 mg/dL (8.7-10.4)
[2023-07-10] MEDS: SODIUM BICARBONATE 50ML VIAL 75 ML in D5W 5% 1,000 ML IV SCH (05:34)
[2023-07-10 06:50] LABS: Base Excess 4.5 mmol/L (-2.0-2.0)
[2023-07-10] MEDS ORDERED: MUPIROCIN 2% OINT 15gm or 22gm FOR MRSA NARES EACHNOSTRI SCH (10:00)
[2023-07-10] MEDS ORDERED: CEFEPIME 2GM/50ML NS 50 ML IV SCH (10:00)
[2023-07-10] MEDS: PANTOPRAZOLE 40 MG/10 ML VIAL INJ IV SCH (10:11)
[2023-07-10] MEDS: HYDROCORTISONE SOD SUCC 100 MG/2ML INJ VIAL IV SCH (10:12)
[2023-07-10 10:22] LABS: Band Neutrophils % (manual) 16; Monocytes % (manual) 2 (0-12)
[2023-07-10 10:23] LABS: Platelet Estimate Decreased
[2023-07-10] MEDS: CALCIUM GLUC 1,000mg/50ml-NS 50 ML IV SCH ×2 (12:38→12:47)
[2023-07-10] MEDS ORDERED: MORPHINE SULFATE INJ 2 MG/ml SYRG IV PRN (14:00)
[2023-07-10] MEDS ORDERED: CALCIUM ACETATE 667 MG CAP NG SCH (14:00)
[2023-07-10] MEDS ORDERED: LORazepam 2MG/ML-1ML VIAL IV PRN (14:00)
== END 2023-07-10 18:16 | DRG 871 ==
LOC: ER 15:55 → EDBD 15:55 → TELE 20:57 → ICU WEST 07-08 18:00
PROVIDERS: ADMIT Internal Medicine; ATTEND Internal Medicine
PROC: 5A09457 Assistance with Respiratory Ventilation, 24-96 Consecutive Hours, Continuous Positive Airway Pressure (ICD-10-PCS; principal; 2023-07-06)
PROC: 30233R1 Transfusion of Nonautologous Platelets into Peripheral Vein, Percutaneous Approach (ICD-10-PCS; 2023-07-07)
PROC: 0W993ZZ Drainage of Right Pleural Cavity, Percutaneous Approach (ICD-10-PCS; 2023-07-07)
PROC: 5A1945Z Respiratory Ventilation, 24-96 Consecutive Hours (ICD-10-PCS; 2023-07-08)
PROC: 0BH17EZ Insertion of Endotracheal Airway into Trachea, Via Natural or Artificial Opening (ICD-10-PCS; 2023-07-08)
DX: A41.9 Sepsis, unspecified organism (principal); G93.41 Metabolic encephalopathy; I50.33 Acute on chronic diastolic (congestive) heart failure; J96.21 Acute and chronic respiratory failure with hypoxia; R65.21 Severe sepsis with septic shock; J96.22 Acute and chronic respiratory failure with hypercapnia; I21.A1 Myocardial infarction type 2; N17.0 Acute kidney failure with tubular necrosis; J18.9 Pneumonia, unspecified organism; E87.0 Hyperosmolality and hypernatremia; N17.9 Acute kidney failure, unspecified; R18.8 Other ascites; J91.8 Pleural effusion in other conditions classified elsewhere; Z20.822 Contact with and (suspected) exposure to COVID-19; D69.6 Thrombocytopenia, unspecified; E83.51 Hypocalcemia; E87.5 Hyperkalemia; Z85.3 Personal history of malignant neoplasm of breast
CPT/HCPCS: 36415; 36600; 71045; 76604; 76700; 76775; 76942; 80048; 80053; 81001; 82140; 82306; 82570; 82805; 82962; 83605; 83735; 83880; 83970; 83986; 84100; 84156; 84300; 84484; 85007; 85027; 85610; 86850; 86900; 86901; 87040; 87070; 87077; 87081; 87186; 87205; 87426; 89051; 93005; 94002; 94003; 94640; 94660; C9113; G0378; J0330; J0692; J1100; J1815; J2250; J2543; P9047